=== PATIENT | male | born 2000 | race African-American/Black ===

== ENCOUNTER 2019-04-26 09:36 | Emergency (ER) | payer MEDICAID ==
[~2019-04-26] VITALS: Ht 172.7 cm; Wt 85.5 kg
[2019-04-26 09:37] VITALS: BP 147/84
[2019-04-26] MEDS ORDERED: HYDROCODONE/ACETAMINOPHEN 5-325 MG TABLET PO ONE (10:00)
[2019-04-26] MEDS ORDERED: PENICILLIN V POTASSIUM 500 MG TABLET PO ONE (10:00)
== END 2019-04-26 10:12 | disposition home or self-care (01) ==
LOC: EMS 09:38
DX: K02.9 Dental caries, unspecified (principal)

== ENCOUNTER 2019-08-08 15:39 | Emergency (ER) | payer MEDICAID, OTHER ==
[~2019-08-08] VITALS: Ht 172.7 cm; Wt 85.5 kg
[2019-08-08 18:58] VITALS: BP 126/71
== END 2019-08-08 19:05 | disposition home or self-care (01) ==
LOC: EMS 15:40
DX: S83.91XA Sprain of unspecified site of right knee, initial encounter (principal); W06.XXXA Fall from bed, initial encounter; Y93.89 Activity, other specified; Y92.89 Other specified places as the place of occurrence of the external cause; Y99.8 Other external cause status